=== PATIENT | female | born 1995 | race Caucasian/White ===

== ENCOUNTER 2017-03-12 10:18 | Emergency (ER) | payer OTHER ==
[~2017-03-12] VITALS: Ht 172.7 cm; Wt 77.3 kg
[2017-03-12] MEDS ORDERED: TRI-LO-ESTARYL1 EACH PO (10:51)
[2017-03-12 10:54] LABS: PH 5 (5-8); SQUAMOUS EPITHELIAL 0-2 /hpf; URINE APPEARANCE Clear; URINE BACTERIA None Seen /hpf; URINE BILIRUBIN Negative (NEGATIVE); URINE BLOOD Negative (NEGATIVE); URINE COLOR Yellow; URINE GLUCOSE Negative (NEGATIVE); URINE KETONE Negative (NEGATIVE); URINE RBC 0-2 /hpf; URINE UROBILINOGEN Negative (NEGATIVE); URINE WBC 0-2 /hpf
[2017-03-12 12:29] LABS: BASO % 0.3 % (0.0-2.0); EOS # 0.1 (0.0-0.7); EOS % 0.4 % (0-4.0); GRAN # 13.3 (1.4-6.5); GRAN % 87.4 % (42.2-75.2); HEMATOCRIT 41.1 % (35.0-45.0); HEMOGLOBIN 13.5 g/dl (12.0-15.0); LYMPH % 6.9 % (20.0-51.0); MEAN CELL VOLUME 87 fl (80.0-95.0); MEAN CORPUSCULAR HEMOGLOBIN 29 pg (26.0-32.0); MEAN CORPUSCULAR HGB CONC 33 g/dl (33.0-37.0); MEAN PLATELET VOLUME 10.2 fl (7.4-10.4); MONO # 0.7 (0.1-0.6); MONO % 4.4 % (1.7-9.3); PLATELET COUNT 233 K/mm3 (130-400); RED BLOOD COUNT 4.73 M/mm3 (4.10-5.30); REDCELL DISTRIBUTION WIDTH-CV 12.3 % (11.5-14.5); WHITE BLOOD COUNT 15.2 K/mm3 (4.8-10.8)
[2017-03-12 12:39] LABS: ALBUMIN 4.3 gm/dL (3.5-5.0); BILIRUBIN,TOTAL 0.5 mg/dL (0.0-1.0); CALCIUM 9.2 mg/dL (8.4-10.2); CREATININE, serum 0.7 mg/dL (0.52-1.25); TOTAL PROTEIN 7.5 gm/dL (6.4-8.2)
[2017-03-12 14:01] VITALS: BP 134/82; PULSE 86; TEMP 98.3
== END 2017-03-12 14:10 | disposition short-term general hospital (02) ==
LOC: COL.ER 10:18
PROVIDERS: Nurse Practitioner
DX: S32.021A Stable burst fracture of second lumbar vertebra, initial encounter for closed fracture (principal); W31.89XA Contact with other specified machinery, initial encounter; Y92.828 Other wilderness area as the place of occurrence of the external cause
CPT/HCPCS: A4315; J1170

== ENCOUNTER → 2017-04-30 | Outpatient (CLI) | payer OTHER ==
[~2017-04-30] MED LIST: TRI-LO-ESTARYL1 EACH PO
== END ==
LOC: COL.RAD 10:51
DX: M54.5 Low back pain (principal); Z98.1 Arthrodesis status

== ENCOUNTER → 2017-09-09 | Outpatient (CLI) | payer OTHER | LOC: COL.RAD 13:56 | DX: S32.022D Unstable burst fracture of second lumbar vertebra, subsequent encounter for fracture with routine healing (principal); Z98.1 Arthrodesis status ==

== ENCOUNTER 2017-09-16 16:30 | Outpatient (RCR) | payer OTHER | END 2017-09-19 08:43 | disposition home or self-care (01) | LOC: WSPT 16:30 | DX: M54.9 Dorsalgia, unspecified (principal); Z98.1 Arthrodesis status | CPT/HCPCS: G0283-GP ==

== ENCOUNTER → 2017-12-19 | Outpatient (CLI) | payer OTHER | LOC: COL.RAD 15:45 | DX: S32.020D Wedge compression fracture of second lumbar vertebra, subsequent encounter for fracture with routine healing (principal); S32.022D Unstable burst fracture of second lumbar vertebra, subsequent encounter for fracture with routine healing; S33.110A Subluxation of L1/L2 lumbar vertebra, initial encounter; Z98.890 Other specified postprocedural states ==

== ENCOUNTER → 2018-03-25 | Outpatient (CLI) | payer OTHER | LOC: COL.RAD 11:18 | DX: M54.5 Low back pain (principal); Z98.1 Arthrodesis status; Z98.890 Other specified postprocedural states ==

== ENCOUNTER 2019-08-09 19:47 | Emergency (ER) | payer BC ==
[~2019-08-09] VITALS: Ht 172.7 cm; Wt 88.6 kg
[2019-08-09 19:51] VITALS: BP 161/69; TEMP 99.9
[2019-08-09] MEDS ORDERED: AMOXICILLIN 8751 TAB PO (20:21)
[2019-08-09 21:05] VITALS: PULSE 73
== END 2019-08-09 21:05 | disposition home or self-care (01) ==
LOC: COL.ER 19:47
DX: S71.151A Open bite, right thigh, initial encounter (principal); Z23 Encounter for immunization; W54.0XXA Bitten by dog, initial encounter; Y92.009 Unspecified place in unspecified non-institutional (private) residence as the place of occurrence of the external cause